=== PATIENT | female | born 1990 | race Caucasian/White ===

== ENCOUNTER 2019-11-27 13:55 | Outpatient (RCR) | payer OTHER, MEDICAID, SELFPAY ==
--- NOTE | ~2019-11-27 | US_ITS ---
EXAMINATION: US OB BPP wo non-stress DATE: 11/27/2019 15:03 INDICATION: Decreased movement. cardiac decelerations in office evaluation. TECHNIQUE: Real-time pelvic ultrasound was performed. The interpreting radiologist was not present fo r the study. COMPARISON: None. FINDINGS: There is a single living fetus in vertex presentation. The placenta is posterior. heart rate i s 155 beats per minute (bpm). Biophysical profile performed by the technologist: breathing (30 sec sustained breathing in 30 minutes): 2 out of 2 movement (3 gross body movements in 30 minutes): 2 out of 2 tone (one episode of dgfeyoo-rxxxqeyhi-zfuqdes limb movement): 2 out of 2 Amniotic fluid pocket (2 cm): 2 out of 2 Total score: 8 out of 8 IMPRESSION: 1. Single living fetus in vertex presentation with heart rate of 155 bpm. 2. Biophysical profile 8 out of 8. Reviewed, dictated and finalized at location A. O INSTRUCTOR
[2019-11-27 15:56] VITALS: BP 114/70; PULSE 85
== END 2020-02-21 07:50 | disposition home or self-care (01) ==
LOC: ANHOBOP 13:55
PROVIDERS: Visit Provider Obstetrics & Gynecology
DX: O36.8130 Decreased fetal movements, third trimester, not applicable or unspecified (principal); Z3A.28 28 weeks gestation of pregnancy
CPT/HCPCS: 59025; 76819

== ENCOUNTER 2020-01-02 11:18 | Outpatient (CLI) | payer OTHER, MEDICAID, SELFPAY ==
[2020-01-02] VITALS (11 sets, daily range): BP systolic 94–122; BP diastolic 57–86; PULSE 83–97; TEMP 36.3; BMI 49.6
--- NOTE | ~2020-01-02 | US_ITS ---
EXAMINATION: US OB limited w BPP DATE: 01/02/2020 14:15 INDICATION: Hypertension and . Assess biophysical profile and amniotic fluid index. TECHNIQUE: Real-time pelvic ultrasound was performed. The interpreting radiologist was not present fo r the study. COMPARISON: 11/27/2019 FINDINGS: There is a single living fetus in vertex presentation. The placenta is posterior with a couple inter nal hypoechoic placental lakes. heart rate is 135 beats per minute (bpm). Normal amniotic fluid index of 20.1 cm (5th%-95%: 8.3-24.5 cm at 33 weeks estimated gestational age) Biophysical profile performed by the technologist: breathing (30 sec sustained breathing in 30 minutes): 2 out of 2 movement (3 gross body movements in 30 minutes): 2 out of 2 tone (one episode of plsijal-jdohxwuex-nhksnhw limb movement): 2 out of 2 Amniotic fluid pocket (2 cm): 2 out of 2 Total score: 8 out of 8 IMPRESSION: 1. Single living fetus in vertex presentation with heart rate of 135 bpm. 2. Biophysical profile 8 out of 8. 3. Normal amniotic fluid index of 20.1 cm. Reviewed, dictated and finalized at location A.
[2020-01-02 12:24] LABS: Basophils Absolute Auto 0.1 K/mm3 (0.0-0.1); Basophils Percent Auto 0.4 % (0.2-1.2); Eosinophils Absolute Auto 0.6 K/mm3 (0-0.3); Eosinophils Percent Auto 4.3 % (0-4.4); Hematocrit 35.8 % (37.0-47.0); Hemoglobin 11.5 g/dL (12.0-15.0); Immature Granulocyte Absolute 0.21 K/mm3 (0.00-0.031); Immature Granulocyte Percent A 1.6 % (0-0.5); Lymphocytes Percent Auto 19.4 % (18.3-44.2); Mean Corpuscular HGB Conc 32.1 g/dl (32-36); Mean Corpuscular Hemoglobin 29.5 pg (26-34); Mean Corpuscular Volume 91.8 fl (80-100); Mean Platelet Volume 12.1 fl (7.4-10.4); Monocytes Absolute Auto 0.8 K/mm3 (0.1-0.6); Neutrophils Absolute Auto 9.1 K/mm3 (1.3-6.7); Neutrophils Percent Auto 68.3 % (45.5-73.1); Platelet Count Result 177 k/mm3 (150-375); White Blood Count 13.4 K/mm3 (4.5-10.0)
[2020-01-02 12:37] LABS: Alanine Aminotransferase 10 U/L (4-35); Albumin Level 3.4 g/dL (3.5-5.1); Alkaline Phosphatase 136 U/L (38-126); Aspartate Amino Transferase 12 U/L (14-36); Bilirubin,Total 0.2 mg/dL (0.2-1.3); Blood Urea Nitrogen 2 mg/dL (7-17); Calcium 8.8 mg/dL (8.4-10.2); Carbon Dioxide 22 mmol/L (22-30); Chloride 106 mmol/L (98-107); Estimated CRCL calculation 150 ml/min; Estimated Glomerular Filt Rate > 60; Glucose 104 mg/dL (65-105); Potassium 3.8 mmol/L (3.4-5.0); Sodium 136 mmol/L (137-145); Uric Acid 4.5 mg/dL (2.5-7.5)
--- NOTE | 2020-01-02 12:40 | OBADM ---
This patient, Christiane Mariee, admitted to the OB room 113 at 1118 as clinical outpatient for hypertension in . Patient/family oriented to hospital policies and general routines including ID bracelet, bed and alarms, visiting hours, pain management, procedures, bathroom and other care routines, personal items, smoking policy, room service/diet, and visiting hours. Patient/Family are encouraged to report perceived risks to care and to ask questions if they do not understand what they are told or what they should do.
--- NOTE | 2020-01-02 12:45 | PC.NURSE ---
Pt was coughing with this BP.
[2020-01-02 13:02] LABS: Total Protein Urine Random 11 mg/dL
[2020-01-02 13:20] LABS: Add Urine Microscopic? NO; Appearance Urine Clear (Clear); Bilirubin Urine Negative (Negative); Blood Urine Negative (Negative); Color Urine Straw (Yellow); Glucose Urine UA Negative (Negative); Ketones Urine Negative (Negative); Leukocyte Esterase Ur Negative LEU/UL (Negative); Nitrate Urine Negative (Negative); Protein Urine Negative (Negative); Specific Grav Ur 1.008 (1.001-1.035); Urobilinogen Urine Negative mg/dL (<2.0)
--- NOTE | 2020-01-02 14:37 | PC.NURSE ---
Edmond Leiva CNM informed of reactive NST, BP's ( one was elevated when pt was having a coughing episode), lab results, BPP 8/8 and [place] 20.1 cm. OK to discharge to home with Hypertension in precautions.
== END 2020-01-02 14:50 | disposition home or self-care (01) ==
LOC: ANHOBOP 11:33 → ANHOBPP 11:35
PROVIDERS: PCP Internal Medicine; Visit Provider Obstetrics & Gynecology
DX: O13.3 Gestational [pregnancy-induced] hypertension without significant proteinuria, third trimester (principal); Z3A.33 33 weeks gestation of pregnancy
CPT/HCPCS: 36415; 59025; 76815; 76819; 80053; 81003; 82570; 84156; 84550; 85025; 99199

== ENCOUNTER 2020-02-20 17:30 | Inpatient (IN) | payer OTHER, MEDICAID, SELFPAY ==
[2020-02-20] VITALS (9 sets, daily range): BP systolic 89–127; BP diastolic 57–89; PULSE 85–119; TEMP 37.1
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
[2020-02-20] MEDS: DINOPROSTONE 10 MG VAG INSERT VAGINAL (20:26)
[2020-02-20 20:37] LABS: Basophils Percent Auto 0.3 % (0.2-1.2); Eosinophils Absolute Auto 0.2 K/mm3 (0-0.3); Eosinophils Percent Auto 1.1 % (0-4.4); Hematocrit 37.1 % (37.0-47.0); Immature Granulocyte Absolute 0.19 K/mm3 (0.00-0.031); Immature Granulocyte Percent A 1.5 % (0-0.5); Lymphocytes Absolute Auto 2.51 K/mm3 (0.9-3.2); Lymphocytes Percent Auto 19.2 % (18.3-44.2); Mean Corpuscular HGB Conc 32.3 g/dl (32-36); Mean Corpuscular Hemoglobin 29.4 pg (26-34); Mean Corpuscular Volume 90.9 fl (80-100); Mean Platelet Volume 12.8 fl (7.4-10.4); Monocytes Absolute Auto 1.1 K/mm3 (0.1-0.6); Monocytes Percent Auto 8.3 % (2.6-8.5); Neutrophils Absolute Auto 9.1 K/mm3 (1.3-6.7); Neutrophils Percent Auto 69.6 % (45.5-73.1); Platelet Count Result 174 k/mm3 (150-375); Red Blood Count 4.08 M/mm3 (4.2-5.4); Red Cell Distribution Width 14.6 % (11.5-14.5); White Blood Count 13.1 K/mm3 (4.5-10.0)
--- NOTE | 2020-02-20 21:41 | WPDANESEPP ---
Anes - Eval Pre Procedure Procedure: labor epidural Date/Time: 02/20/20 21:41 Surgeon: trina Pre Op Diagnosis: Induction of Labor Patient Data Age: 29 Gender: F Height: Weight: Last Vital Signs Pulse 96 02/20/20 21:31 BP 113/67 02/20/20 21:31 Allergies Allergy/AdvReac Type Severity Reaction Status Date / Time albuterol Allergy Unknown Verified 09/24/19 10:20 Home Medications Medication Instructions Recorded Confirmed Type acetaminophen 325 mg tablet 650 mg PO Q4H PRN MDD 1000 mg 09/24/19 01/02/20 History albuterol sulfate 90 mcg/actuation 2 puff INHALATION Q4-6H PRN gm 09/24/19 01/02/20 History aerosol inhaler cetirizine 10 mg tablet 10 mg PO DAILY 09/24/19 01/02/20 History inhalational spacing device #1 each 09/24/19 09/24/19 History montelukast 10 mg tablet 10 mg PO DAILY 09/24/19 01/02/20 History beclomethasone dipropionate 40 2 inhalation INHALATION BID #10.6 10/04/19 01/02/20 Rx mcg/actuation HFA breath activated gm aerosol fluticasone propionate [Flonase 1 spray INTRANASAL DAILY 01/02/20 01/02/20 History Allergy Relief] albuterol sulfate 2.5 mg INHALATION Q6H PRN #75 ml 01/16/20 Rx vit-iron fum-folic ac 1 tablet PO DAILY 01/26/20 01/26/20 History [ Vitamin] Laboratory Tests 02/20/20 02/20/20 02/20/20 20:23 20:23 20:23 WBC 13.1 K/mm3 H K/mm3 (4.5-10.0) RBC 4.08 M/mm3 L M/mm3 (4.2-5.4) Hgb 12.0 g/dL g/dL (12.0-15.0) Hct 37.1 % % (37.0-47.0) MCV 90.9 fl fl (80-100) MCH 29.4 pg pg (26-34) MCHC 32.3 g/dl g/dl (32-36) RDW 14.6 % H % (11.5-14.5) Plt Count 174 k/mm3 k/mm3 (150-375) MPV 12.8 fl H fl (7.4-10.4) Immature Gran % (Auto) 1.5 % H % (0-0.5) Neut % (Auto) 69.6 % % (45.5-73.1) Lymph % (Auto) 19.2 % % (18.3-44.2) [place] % (Auto) 8.3 % % (2.6-8.5) Eos % (Auto) 1.1 % % (0-4.4) Baso % (Auto) 0.3 % % (0.2-1.2) Lymph # (Auto) 2.51 K/mm3 K/mm3 (0.9-3.2) [place] # (Auto) 1.1 K/mm3 H K/mm3 (0.1-0.6) Eos # (Auto) 0.2 K/mm3 K/mm3 (0-0.3) Baso # (Auto) 0.0 K/mm3 K/mm3 (0.0-0.1) Abs Immat Gran (auto) 0.19 K/mm3 H K/mm3 (0.00-0.031) Absolute Neuts (auto) 9.1 K/mm3 H K/mm3 (1.3-6.7) Absolute Nucleated RBC 0.0 K/mm3 K/mm3 (0.0-0.012) Nucleated RBC % 0.0 % % (0.0-0.2) RPR Pending Blood Type A Positive Antibody Screen Negative Patient hx anesthesia problems: none Family hx anesthesia problems: none [facility] Family History Family History (Updated 01/26/20 @ 15:56 by Ashia Flowers RN) Father Acute myocardial infarction Mother Diabetes mellitus Anxiety Vertigo Sibling Asthma Grandparent Chronic obstructive pulmonary disease Social History Social History (Updated 09/24/19 @ 11:30 by Ameena Dean CMA) Smoking status: Never smoker Alcohol intake: never Substance use: never Gender identity (if verbalized by the patient): Female Spiritual care concerns: No Exam Day of Procedure 02/20/20 21:41
--- NOTE | 2020-02-20 23:55 | LDADM ---
This patient, Christiane Mariee, was admitted to Labor/Delivery/Recovery 109 on 02/20/20 at 17:30. Plans for labor, pain management and were discussed with patient. Patient/family oriented to hospital policies and general routines including ID bracelet, bed and alarms, visiting hours, pain management, procedures, bathroom and other care routines, personal items, smoking policy, room service/diet and guest tray routines, security routines, and visiting hours. Patient/Family are encouraged to report perceived risks to care and to ask questions if they do not understand what they are told or what they should do. See OBIX for further documentation.
[2020-02-21] VITALS (254 sets, daily range): BP systolic 55–187; BP diastolic 42–154; PULSE 65–141; TEMP 36.2–37.3; O2SAT 83–100; BMI 49.6
[2020-02-21 07:08] LABS: Rapid Plasma Reagin Non-Reactive (NonReactive)
--- NOTE | 2020-02-21 07:53 | WPDOBADMIT ---
Obstetrics - Admit Note Admission Note: record reviewed. No pertinent additions to the history and/or any subsequent changes in the physical findings that are not consistent with the expected course of the were found. Additions to the history and/or subsequent changes in the physical findings follow. G1 at 40+2 for induction of labor, s/p cervidil last night. SROM around 0500. c/o pain with contractions. Planning to get epidural shortly. Last cervical exam 2 cm. GBS negative.
[2020-02-21] MEDS: LACTATED RINGERS 1,000 ML 125 ML IV CONT ×2 (08:10→18:43)
[2020-02-21] MEDS: OXYTOCIN 30 UNITS/NS 500 ML 30 UNITS/500 ML BAG 6 UNITS IV CONT (09:33)
[2020-02-21] MEDS: ONDANSETRON INJ 4 MG/2 ML VIAL IV PUSH (20:35)
--- NOTE | 2020-02-21 23:09 | PM.OBPRVD ---
OB - Delivery Note Procedure Delivery date: 02/21/20 events: Labor Induction and Prolonged Rupture of Membrane Induction method: per misoprostol protocol and per pitocin protocol Delivery monitor: external FHT, external uterine and internal uterine Route of delivery: Laceration description: Perineal - 2nd Degree Delivery repair: vicryl (2-0) Specimen: Yes Estimated blood loss (mL): 378 Anesthesia type: Local Disposition: floor Baby Date of : 02/21/20 Time of : 22:39 Weeks of gestation at delivery: 40 Infant gender: Female Weight (pounds): 6 Weight (ounces): 12 presentation: vertex position: Right Occiput Anterior Placenta delivery description: Spontaneous cord vessel description: 3 Vessels score one minute: 3 score five minutes: 9
[2020-02-21] MEDS: OXYTOCIN 30 UNITS/NS 500 ML 30 UNITS/500 ML BAG 125 UNITS IV CONT (23:21)
[2020-02-22] VITALS (8 sets, daily range): BP systolic 83–127; BP diastolic 53–82; PULSE 81–113; RESP 16–18; TEMP 36.4–37.4; O2SAT 99
[2020-02-22 06:05] LABS: Hematocrit 33.4 % (37.0-47.0)
--- NOTE | 2020-02-22 07:30 | PM.OBPNVD ---
OB - PN: Subj Subjective Date/time seen: 02/22/20 07:30 Patient comments: no complaints, pain well controlled, incisional pain, tolerating diet and flatus present OB - PN: Obj Data Labs CBC & Chem 7: 02/22/20 04:49 Labs: Laboratory Results - last 24 hr 02/22/20 04:49 Hgb 11.0 L Hct 33.4 L OB - PN A/P Plan day: 1 Plan: routine care Comments: No problems, routine care Time Spent With Patient Time: Total time spent is greater than 50% in coordination of care (as documented) at patient's floor/unit and/or counseling patient: Exam Const: General: comfortable, no acute distress and alert Resp: Effort & Inspection: normal respiratory effort Auscultation: no crackles, no rales and no rhonchi Cardio: Rate: regular rate Heart sounds: no click, no murmurs and no rubs GI: Inspection: non-distended GI Palp: No Tenderness to palpation present (GI) Auscultation: normal bowel sounds Other: Incision - CDI Extrem: General: normal to inspection, no pedal edema and no calf tenderness
--- NOTE | 2020-02-22 10:20 | PC.NURSE ---
Consulted with patient, mother reports infant is latching she has some difficulties and discomfort, mother states is sleepy at feedings and is on and off during. Reviewed sleepiness is normal and stimulation to wake and during feedings with assist with keep awake and nursing effectively for increased intake and maintaining deep latch. Reviewed feeding cues, frequencies, duration of feedings, feeding elimination flow sheet, and signs of adequate intake. Demonstrated stimulation techniques to wake for feeding. Assisted with to breast. Reviewed positioning/alignment in cross cradle, holding breast in U hold and guided asymmetrical latch on. Several attempts before infant was able to latch correctly. Infant nursed eagerly, with steady draws and frequent swallowing noted. Reviewed signs of a correct latch, effective nursing and suck swallow ratio. was able to maintain latch without discomfort to mother. Nipple care reviewed. Advised to stimulate during feedings. Instructed mother to call out for RN assistance if she is unable to latch infant for feeding or she has discomfort with nursing. Instructed feeding should be initiated three hours from start of last feeding or if feeding cues are noted before. Mother voiced understanding of information shared.
[2020-02-22] MEDS: DOCUSATE SODIUM 100 MG CAPSULE PO (10:55)
[2020-02-22] MEDS: IBUPROFEN 600 MG TABLET PO (10:55)
[2020-02-22] MEDS: MULTIVIT/MIN/PREN/FOL AC/IRON TABLET 1 TAB PO (10:55)
--- NOTE | 2020-02-22 11:30 | WPDANLDPN2 ---
Anes-Prog Note L&D Date/Time: 02/22/20 11:30 Comfortable throughout: labor and delivery Neuraxial method: epidural Epidural/Spinal procedure site: clean & non-tender Neuro status: Neuro function grossly intact. Cardiovascular status: normal Respiratory status: normal Airway patency: baseline Mental status: baseline Post-Op hydration status: normal Vital Signs: Last Vital Signs Temp 37.4 C 02/22/20 09:05 Pulse 107 H 02/22/20 09:05 Resp 18 02/22/20 09:05 BP 114/75 02/22/20 09:05 Pulse Ox 99 02/22/20 09:05 I/O: Intake & Output 02/21/20 02/22/20 02/22/20 23:59 07:59 15:59 Intake Total 1000 Output Total 35 Balance 1000 -35 Post-procedural complaints: none Patient feedback: Patient satisfied with anesthetic care.
[2020-02-22] MEDS: ACETAMINOPHEN 325 MG TABLET 650 MG PO (18:49)
[2020-02-23] MEDS: IBUPROFEN 600 MG TABLET PO ×3 (04:52→17:56)
[2020-02-23 08:35] VITALS: BP 123/90; PULSE 98; RESP 18; TEMP 35.9
[2020-02-23] MEDS: MULTIVIT/MIN/PREN/FOL AC/IRON TABLET 1 TAB PO (09:27)
[2020-02-23] MEDS: DOCUSATE SODIUM 100 MG CAPSULE PO ×2 (09:27→17:56)
[2020-02-23] MEDS: WITCH HAZEL 40 PADS 1 PAD TOPICAL (09:30)
--- NOTE | 2020-02-23 11:01 | PM.OBPNVD ---
OB - PN: Subj Subjective Date/time seen: 02/23/20 11:01 Patient comments: no complaints, pain well controlled, incisional pain, tolerating diet and flatus present OB - PN: Obj Data Labs CBC & Chem 7: 02/22/20 04:49 OB - PN A/P Plan day: 2 Plan: routine care Comments: PPD#2- no problems, to d/c Time Spent With Patient Time: Total time spent is greater than 50% in coordination of care (as documented) at patient's floor/unit and/or counseling patient: Exam Const: General: comfortable, no acute distress and alert Resp: Effort & Inspection: normal respiratory effort Auscultation: no crackles, no rales and no rhonchi Cardio: Rate: regular rate Heart sounds: no click, no murmurs and no rubs GI: Inspection: non-distended GI Palp: No Tenderness to palpation present (GI) Auscultation: normal bowel sounds Extrem: General: normal to inspection, no pedal edema and no calf tenderness
--- NOTE | 2020-02-23 11:03 | P.DS_ITS ---
DS: Diagnosis Discharge Diagnosis (1) Term delivered: Code(s): O80 - Encounter for full-term uncomplicated delivery Status: Acute OB - DS: Summary OB Procedures : NST OB Procedures Intrapartum: Spontaneous Vag Delivery OB Procedures: : None Peripartum Data Infant Delivery Method: Natural Vaginal complications: none Status at Discharge Functional status at discharge: independent ambulation Time Spent with Patient Time attestation: Total time spent providing and/or coordinating discharge services: DS: Data Data Completed and Pending Pending studies at discharge: Pending at discharge 02/21/20 22:46 Surgical [PTH] Routine Discharge Plan Discharge Discharging Clinician: Heidy Vigil Patient Disposition: Home, Self-Care Activity: pelvic rest Diet: regular Patient Instructions: Antibiotic Form Stand Alone Forms: General Discharge Information Follow-up/Referrals: Heidy Vigil MD [Physician] - Discharge Medications: Continued (DME) Aerochamber Plus Flow-Vu Spacer See Rx Instructions .ROUTE .MEDSUPPLY Qty: 1 RF: 0 cetirizine 10 mg tablet 10 mg PO DAILY RF: 0 montelukast 10 mg tablet 10 mg PO DAILY RF: 0 albuterol sulfate [Ventolin HFA] 90 mcg/actuation HFA aerosol inhaler 2 puff INHALATION Q4-6H PRN (Reason: Shortness Of Breath) RF: 0 acetaminophen [Tylenol] 325 mg tablet 650 mg PO Q4H MDD 1000 mg PRN (Reason: Mild Pain (Scale Score 1-4)) RF: 0 Vitamin 27 mg iron- 0.8 mg Tablet 1 tablet PO DAILY RF: 0 fluticasone propionate [Flonase Allergy Relief] 50 mcg/actuation [place],Suspension 1 spray INTRANASAL DAILY RF: 0 Qvar RediHaler 40 mcg/actuation HFA aerosol breath activated 2 inhalation INHALATION BID Qty: 10.6 RF: 2 albuterol sulfate 2.5 mg /3 mL (0.083 %) solution for nebulization 2.5 mg INHALATION Q6H PRN (Reason: Shortness Of Breath) Qty: 75 RF: 0 Date of admission: 02/20/20 17:30 Primary Care Provider: Yuriy Lynn Admitting Provider: Adia Wren Attending physician on admission: Adia Wren
[2020-02-23] MEDS: ACETAMINOPHEN 325 MG TABLET 650 MG PO (16:24)
--- NOTE | 2020-02-23 18:15 | PC.NURSE ---
1100 Pt states she dropped the TV remote/call light on her R big toe. She is walking and states it feels OK.
[2020-02-26 07:53] VITALS: BP 138/87; PULSE 83; RESP 20; TEMP 36.8; O2SAT 99
== END 2020-02-23 18:50 | disposition home or self-care (01) | DRG 807 ==
LOC: ANHLDR 02-21 22:09 → ANHOB2 02-23 11:06 → ANHLDR 02-26 10:39 → ANHOB2 02-26 10:39
PROVIDERS: Admitting Provider Obstetrics & Gynecology; PCP Internal Medicine; Visit Provider Obstetrics & Gynecology
DX: O42.92 Full-term premature rupture of membranes, unspecified as to length of time between rupture and onset of labor (principal); Z37.0 Single live birth; Z3A.40 40 weeks gestation of pregnancy; O13.4 Gestational [pregnancy-induced] hypertension without significant proteinuria, complicating childbirth; O70.1 Second degree perineal laceration during delivery; O99.52 Diseases of the respiratory system complicating childbirth; J45.909 Unspecified asthma, uncomplicated
CPT/HCPCS: 36415; 85014; 85018; 85025; 86592; 86850; 86900; 86901; 88307; A9270; J2405; J2590; J2795; J3010; J7120